=== PATIENT | male | born 1975 | race African-American/Black ===

== ENCOUNTER 2020-11-09 13:41 | Emergency (ER) | payer OTHER ==
[2020-11-09 13:48] VITALS: BP 172/94; PULSE 90; TEMP 97; BMI 25.1
[2020-11-09 16:14] LABS: BASO % 0.5 % (0-2.0); HEMATOCRIT 44.3 % (35.4-49); HEMOGLOBIN 14.3 GM/dL (11.7-16.9); LYMPH % 40.5 % (8-40); MCH 28.3 pg (25.7-33.7); MCHC 32.3 g/dl (32.0-35.9); MEAN CELL VOLUME 87.9 fl (80-96); MEAN PLT VOLUME 8.8 fl (7.5-11.1); MONO % 6.5 % (3.8-10.2); NEUT % 51.5 % (42.8-82.8); PLATELET COUNT 293 K/MM3 (134-434); RBC 5.04 M/mm3 (4.00-5.60); RDW 12.6 % (11.9-15.9); WHITE BLOOD COUNT 4.9 K/mm3 (4.0-10.0)
[2020-11-09 16:24] LABS: POTASSIUM 4.1 mmol/L (3.5-5.1)
[2020-11-09 16:26] LABS: CALCIUM 9.4 mg/dL (8.5-10.1)
[2020-11-09 16:27] LABS: ALBUMIN 4.1 g/dl (3.4-5.0); BLOOD UREA NITROGEN 13.9 mg/dL (7-18)
[2020-11-09 16:30] LABS: CREATININE 0.8 mg/dL (0.55-1.3)
[2020-11-09 16:32] LABS: BILIRUBIN,TOTAL 0.9 mg/dL (0.2-1); TOT PROT 7.5 g/dl (6.4-8.2)
== END 2020-11-09 17:15 | disposition home or self-care (01) ==
LOC: JER 13:41
DX: R73.9 Hyperglycemia, unspecified (principal); M79.604 Pain in right leg; R53.83 Other fatigue
CPT/HCPCS: 36415; 80053; 82962; 85025; 99283-25